=== PATIENT | male | born 1995 | race Caucasian/White ===

== ENCOUNTER 2017-04-07 23:22 | Inpatient (IN) | payer OTHER ==
[~2017-04-07] VITALS: Ht 182.9 cm; Wt 74.7 kg
[~2017-04-07 23:22] MED LIST: Z.0.NO CURRENT MEDS
[2017-04-07 23:29] VITALS: BP 132/77; PULSE 89; RESP 16; TEMP 98.6; O2SAT 98
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
[2017-04-08] MEDS ORDERED: TETANUS/DIPHTHERIA TOXOID ADULT 0.5 ML VIAL IM ONE
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
[2017-04-08 00:57] LABS: AUTOMATED NEUTROPHIL # 12.5 TH/MM3 (1.8-7.7); BASOPHIL # 0.1 TH/MM3 (0-0.2); BASOPHIL % 0.9 % (0.0-2.0); EOSINOPHIL # 0.1 TH/MM3 (0-0.4); EOSINOPHIL % 0.4 % (0.0-4.0); HEMOGLOBIN 14.2 GM/DL (13.0-17.0); LYMPH % 9.7 % (9.0-44.0); LYMPHOCYTE # 1.5 TH/MM3 (1.0-4.8); MEAN CELL VOLUME 88.9 FL (80.0-100.0); MEAN CORPUSCULAR HEMOGLOBIN 30.8 PG (27.0-34.0); MEAN CORPUSCULAR HGB CONC 34.7 % (32.0-36.0); MEAN PLATELET VOLUME 9.5 FL (7.0-11.0); MONO % 6.5 % (0.0-8.0); NEUT % 82.5 % (16.0-70.0); PLATELET COUNT 245 TH/MM3 (150-450); RED BLOOD COUNT 4.62 MIL/MM3 (4.50-5.90); RED CELL DISTRIBUTION WIDTH 13.5 % (11.6-17.2); WHITE BLOOD COUNT 15.1 TH/MM3 (4.0-11.0)
[2017-04-08 01:04] LABS: ALBUMIN 4.4 GM/DL (3.4-5.0); ALT (GPT) 17 U/L (12-78); AST (GOT) 18 U/L (15-37); BICARBONATE 21.1 MEQ/L (21.0-32.0); BLOOD UREA NITROGEN 5 MG/DL (7-18); CALCIUM 8.8 MG/DL (8.5-10.1); CHLORIDE 104 MEQ/L (98-107); CREATININE 1.34 MG/DL (0.60-1.30); GLOMERULAR FILTRATION RATE 67 ML/MIN (>89); GLUCOSE,RANDOM 148 MG/DL (74-106); SODIUM (NA) 140 MEQ/L (136-145)
[2017-04-08 01:15] LABS: ALKALINE PHOSPHATASE 52 U/L (45-117); TOTAL BILIRUBIN ADULT 0.8 MG/DL (0.2-1.0); TOTAL PROTEIN 7.5 GM/DL (6.4-8.2)
[2017-04-08 01:25] LABS: ACETAMINOPHEN LESS THAN 2.0 MCG/ML (10.0-30.0)
[2017-04-08 08:12] VITALS: BP 120/74; PULSE 78; RESP 20; TEMP 98.8; O2SAT 100
[2017-04-08 10:00] VITALS: BP 121/83; PULSE 71; RESP 18; O2SAT 100
[2017-04-08 11:14] VITALS: BP 108/69; PULSE 75; RESP 18; O2SAT 97
[2017-04-08] MEDS ORDERED: LORazepam 0.5 MG TAB PO PRN (11:15)
[2017-04-08] MEDS ORDERED: ALUMINUM/MAGNESIUM/SIMETH 30 ML CUP PO PRN (11:15)
[2017-04-08] MEDS: NICOTINE 21 MG/24 HR PATCH T-DERMAL SCH (11:15)
[2017-04-08] MEDS ORDERED: LORazepam 2 MG/ML VIAL IM PRN ×2 (11:15)
[2017-04-08] MEDS ORDERED: LORazepam 1 MG TAB PO PRN (11:15)
[2017-04-08] MEDS ORDERED: ACETAMINOPHEN 325 MG TAB PO PRN (11:15)
[2017-04-08] MEDS ORDERED: risperiDONE 0.5 MG TAB PO SCH (11:15)
[2017-04-08] MEDS ORDERED: MAGNESIUM HYDROXIDE SUSP 30 ML CUP PO PRN (11:15)
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
[2017-04-08 14:05] VITALS: BP 120/81; PULSE 79; RESP 20; TEMP 99.6; O2SAT 99
[2017-04-08] MEDS: REMOVE OLD NICODERM (NICOTINE) PATCH T-DERMAL SCH (21:00)
[2017-04-09 05:46] VITALS: BP 129/65; PULSE 69; RESP 17; TEMP 97.9; O2SAT 97
[2017-04-09 06:50] LABS: BICARBONATE 21.7 MEQ/L (21.0-32.0); CALCIUM 9.6 MG/DL (8.5-10.1); CHLORIDE 106 MEQ/L (98-107); CREATININE 0.82 MG/DL (0.60-1.30); GLOMERULAR FILTRATION RATE 117 ML/MIN (>89); GLUCOSE,RANDOM 101 MG/DL (74-106); SODIUM (NA) 140 MEQ/L (136-145)
[2017-04-09 06:51] LABS: CHOLESTEROL 152 MG/DL (120-200)
[2017-04-09 06:54] LABS: CHOLESTEROL/ HDL RATIO 2.02 RATIO; LDL CHOLESTEROL 67 MG/DL (0-99); TRIGLYCERIDES 49 MG/DL (42-150)
[2017-04-09 07:00] LABS: BLOOD UREA NITROGEN 6 MG/DL (7-18)
[2017-04-09] MEDS: NICOTINE 21 MG/24 HR PATCH T-DERMAL SCH ×2 (08:10→09:40)
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
[2017-04-09] MEDS ORDERED: POTASSIUM CHLORIDE 10 MEQ CONTROLLED RELEASE TAB PO ONE (09:45)
[2017-04-09 15:44] LABS: HEMOGLOBIN A1C 4.9 % (4.3-6.0)
[2017-04-09 16:06] VITALS: BP 122/64; PULSE 57; RESP 18; TEMP 99; O2SAT 100
[2017-04-09] MEDS: REMOVE OLD NICODERM (NICOTINE) PATCH T-DERMAL SCH (21:00)
[2017-04-09] MEDS: risperiDONE 1 MG TAB PO SCH (21:00)
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
[2017-04-10 05:38] VITALS: BP 109/58; PULSE 59; RESP 18; TEMP 96.8; O2SAT 97
[2017-04-10] MEDS: CEPHALEXIN MONOHYDRATE 500 MG CAP PO SCH ×4 (06:00→18:00)
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
[2017-04-10 08:46] LABS: AUTOMATED NEUTROPHIL # 4.9 TH/MM3 (1.8-7.7); BASOPHIL # 0.1 TH/MM3 (0-0.2); EOSINOPHIL # 0.1 TH/MM3 (0-0.4); EOSINOPHIL % 0.8 % (0.0-4.0); MEAN CELL VOLUME 88.4 FL (80.0-100.0); MEAN CORPUSCULAR HEMOGLOBIN 30.8 PG (27.0-34.0); MEAN CORPUSCULAR HGB CONC 34.9 % (32.0-36.0); MONO % 8.5 % (0.0-8.0); MONOCYTE # 0.7 TH/MM3 (0-0.9); NEUT % 63.7 % (16.0-70.0); PLATELET COUNT 275 TH/MM3 (150-450); RED BLOOD COUNT 4.87 MIL/MM3 (4.50-5.90); RED CELL DISTRIBUTION WIDTH 13.5 % (11.6-17.2); WHITE BLOOD COUNT 7.7 TH/MM3 (4.0-11.0)
[2017-04-10] MEDS: risperiDONE 1 MG TAB PO SCH ×2 (09:00→20:55)
[2017-04-10 09:15] LABS: CALCIUM 9.5 MG/DL (8.5-10.1); CREATININE 0.86 MG/DL (0.60-1.30); MAGNESIUM 2.5 MG/DL (1.5-2.5)
--- NOTE | 2017-04-10 12:14 | HHI.PYPN ---
Subjective Chief Complaint: Psychosis Remarks Patient seen and examined with nurse. Chart reviewed. Case discussed with nursing staff who reports patient's mother could not be reached to provide consent for Risperdal and so this remains on hold. Patient did refuse his Keflex. Case discussed in treatment team. On my examination today, patient remains oddly related and internally preoccupied. No SI or HI. No adelso delusional material. No physical complaints. Review of Systems ROS Limitations: Psychotic, Poor Historian Except as stated in HPI: all other systems reviewed are Neg Mental Status Examination Appearance: Disheveled Consciousness: Alert Orientation: x4 Motor Activity: Normal gait, Other (no motoric abnormalities appreciated) Speech: Hesitant Language: Adequate Fund of Knowledge: Adequate Attention and Concentration: Easily Distracted Memory: Unremarkable Mood: Other (calm) Affect: Blunt Thought Process & Associations: Circumstantial Thought Content: Bizarre thinking, Thought blocking Hallucination Type: Other (denies AVH but appears internally stimulated) Delusion Type: None Suicidal Ideation: No Suicidal Plan: No Suicidal Intention: No Homicidal Ideation: No Homicidal Plan: No Homicidal Intention: No Insight: Poor Judgment: Poor Results Labs Item Value Date Time Erythrocyte Sedimentation Rate 1 mm/hr 04/09/17 1557 White Blood Count 7.7 TH/MM3 04/10/17 0830 Ammonia 20 MCMOL/L 04/09/17 1557 Vitamin B12 Level 585 PG/ML 04/09/17 1557 Thyroid Stimulating Hormone 3rd Gen 1.020 uIU/ML 04/08/17 0017 HIV (1&2) Antibody NEGATIVE 04/09/17 1557 Rapid Plasma Reagin NON-REACTIVE 04/09/17 1557 Labs reviewed. No organic cause identified so far for patient's symptoms. MRI brain and EEG pending. Vitals/IOs Vital Signs Date Time Temp Pulse Resp B/P (MAP) Pulse Ox O2 Delivery O2 Flow Rate FiO2 04/10/17 05:38 96.8 59 18 109/58 (75) 97 04/08/17 11:14 Room Air Assessment & Plan Problem List: (1) Brief psychotic disorder ICD Codes: F23 - Brief psychotic disorder Assessment & Plan Initiate Risperdal for psychotic symptoms once consent from healthcare surrogate has been obtained. Continue to monitor on the inpatient unit. Neurology and hospitalist input noted and appreciated. Follow-up outstanding studies. Continue to monitor on the inpatient unit. Continue other medications and care as ordered. Justification for Cont. Inpt. Impairment in reality construction. Risk for decompensation in less restrictive environment. Discharge Planning Pending psychiatric stabilization. Request HC Surrog/Guard Advoc?: Yes Tanner Smith MD Apr 10, 2017 12:14
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
--- NOTE | 2017-04-10 14:42 | EKG ---
Date Performed: 04/09/2017 Time Performed: 14:21:54 PTAGE: 21 years EKG: Sinus rhythm WITH SHORT MD INTERVAL PROBABLE LATERAL MYOCARDIAL INFARCTION , PROBABLY OLD PROBABLE INFERIOR MYOCA RDIAL INFARCTION , PROBABLY OLD ABNORMAL ECG NO PREVIOUS TRACING DOCTOR: Toni Cruz Interpretating Date/Time 04/10/2017 14:33:08
[2017-04-10 18:10] VITALS: BP 110/70; PULSE 65; RESP 18; TEMP 99.1; O2SAT 100
[2017-04-10] MEDS: LACTOBACILLUS ACIDOPHILUS TAB PO SCH (20:55)
[2017-04-10] MEDS: REMOVE OLD NICODERM (NICOTINE) PATCH T-DERMAL SCH (20:56)
[2017-04-10] MEDS ORDERED: OLANZapine IM 10 MG VIAL IM ONE (22:42)
[2017-04-10] MEDS ORDERED: OLANZapine IM 10 MG VIAL IM SCH (23:00)
[2017-04-11 05:37] VITALS: BP 102/50; PULSE 72; RESP 18; TEMP 96.1; O2SAT 97
[2017-04-11] MEDS: CEPHALEXIN MONOHYDRATE 500 MG CAP PO SCH ×4 (05:50→17:39)
[2017-04-11] MEDS: NICOTINE 21 MG/24 HR PATCH T-DERMAL SCH (08:43)
--- NOTE | 2017-04-11 08:50 | HHI.PYPN ---
Subjective Chief Complaint: Psychosis Remarks Patient seen and examined with nurse. Chart reviewed. Patient is refusing oral Risperdal. Case discussed with nursing staff. I was called yesterday evening as the physician on-call because the patient was growing restless, anxious and difficult to redirect. I ordered the patient medicated with Zyprexa IM ETO, and he slept well after that. On my examination today, the patient remains vague, somewhat disorganized. He remains internally preoccupied. He denies SI or HI. He denies any side effects from the Zyprexa he received yesterday evening. Complains of feeling a little bit cold (his room is cold, and I have asked nurse to try to move patient to a warmer room) but otherwise no physical complaints. TSH wnl. Spoke with patient's mother/HCS over the phone. We review circumstances of patient's presentation here. Mother notes patient was sleeping quite poorly in the several days prior to admission and thinks that he would do much better if he got a good night sleep. We review the laboratory findings and clinical data obtained up to this point. We discuss general medical and neurological consultations. We discuss patient's refusal of oral Risperdal and discuss pharmacotherapeutic options going forward. Given good tolerability of Zyprexa, we settle on a trial of this agent PO with IM backup. She thanks me for the call. Review of Systems ROS Limitations: Psychotic, Poor Historian Except as stated in HPI: all other systems reviewed are Neg Mental Status Examination Appearance: Disheveled Consciousness: Alert Orientation: x4 Motor Activity: Normal gait, Other (no abnormal motor movements noted. No hand tremor, no cogwheeling, no masked facies, no dystonias, no dyskinesias.) Speech: Hesitant Language: Adequate Fund of Knowledge: Adequate Attention and Concentration: Easily Distracted Memory: Unremarkable Mood: Other (calm) Affect: Blunt Thought Process & Associations: Circumstantial (somewhat disorganized at times) Thought Content: Bizarre thinking, Thought blocking Hallucination Type: Other (remains internally stimulated) Delusion Type: None Suicidal Ideation: No Suicidal Plan: No Suicidal Intention: No Homicidal Ideation: No Homicidal Plan: No Homicidal Intention: No Insight: Poor Judgment: Poor Results Labs Labs reviewed. Laboratory workup for medical causes of psychosis unrevealing. Only outstanding laboratory is JOHN. MRI of the brain performed and impression is pending. Awaiting EEG results. Vitals/IOs Vital Signs Date Time Temp Pulse Resp B/P (MAP) Pulse Ox O2 Delivery O2 Flow Rate FiO2 04/11/17 05:37 96.1 72 18 102/50 (67) 97 04/08/17 11:14 Room Air Assessment & Plan Problem List: (1) Brief psychotic disorder ICD Codes: F23 - Brief psychotic disorder Assessment & Plan Discontinue Risperdal and initiate Zyprexa Zydis 10mg qHS with IM backup to target psychosis. R/B/A discussed with HCS. Plan to titrate to effect. Follow -up outstanding labs/studies. Continue to monitor on an inpatient unit. Continue other medications and care as ordered. Justification for Cont. Inpt. Med changes. Impairment in reality construction. High risk for decompensation in less restrictive environment. Discharge Planning pending psychiatric stabilization. [place] [facility] tomorrow. Request HC Surrog/Guard Advoc?: Yes Tanner Smith MD Apr 11, 2017 08:50
[2017-04-11] MEDS: risperiDONE 1 MG TAB PO SCH (09:00)
[2017-04-11] MEDS: LACTOBACILLUS ACIDOPHILUS TAB PO SCH ×2 (09:00→20:18)
--- NOTE | 2017-04-11 09:54 | PD.TTN ---
Patient Problems 1. Discharge planning 2. Medication compliance 3. Knowledge deficit 4. Lack of coping skills Progress Toward Goals Provider Present: Dr. Aaron Smith Provider Input: 04/10/17 - Dr. Smith reported that the patient remains psychotic and he is awaiting his mother's consent for Risperdal. Psychiatric Counselors Present: Yesika Oneill [facility], CHRISTIANO Fermin Psych Therapist Input: 04/10/17 - Patient remains psychotic with disorganized thought process. He has no insight into his mental illness. Group Spec/RT/OT/YATES Present: LÁZARO Capellan, MILAN Platt Group Spec/RT/OT/YATES Input: 04/10/17 - Patient is not participating in groups. Discharge Plan SMA Patient will be discharged home to his mother's house when deemed appropriate by Dr. Smith. Documentation Scribe: CHRISTIANO Fermin Date Resolved: Apr 10, 2017 Samina Marquez Apr 11, 2017 09:54
--- NOTE | 2017-04-11 13:36 | RADRPT ---
EXAM DATE/TIME: 04/11/2017 13:03 [place] COMPARISON: No previous studies available for comparison. INDICATIONS : Psychosis. MEDICAL HISTORY : None. SURGICAL HISTORY : Corneal transplant. ENCOUNTER: Initial ACUITY: 1 week PAIN SCORE: 0/10 LOCATION: head TECHNIQUE: Multiplanar, multisequence MRI of the brain was performed without contrast. FINDINGS: CEREBRUM: The ventricles are normal for age. No evidence of midline shift, mass lesion, hemorrhage or acute in farction. No extraaxial fluid collections are seen. The pituitary gland and suprasellar cistern are normal in configuration. WHITE MATTER: No significant signal abnormalities are seen in the white matter. POSTERIOR FOSSA: The cerebellum and brainstem are intact. The 4th ventricle is midline. The cerebellopontine angle is unremarkable. The cerebellar tonsils are normal in position. DIFFUSION IMAGING: No focal areas of restricted diffusion are seen. No evidence of acute infarction. EXTRACRANIAL: The visualized portions of the orbits and paranasal sinuses are unremarkable. CONCLUSION: Normal examination. Antoine López MD on April 11, 2017 at 13:31 Board Certified Radiologist. This report was verified electronically.
[2017-04-11 14:06] LABS: ANA SCREEN NEG (NEG)
--- NOTE | 2017-04-11 15:58 | MG ---
cc: TERRANCE THOMAS M.D. Sex: M DATE OF : 1995, 21 years old. EE-[id number] Room 2707 INTRODUCTION: Photic stimulation, that was stopped 44 seconds into hyperventilation portion because the patient did not cooperate. Awake, drowsy and asleep study. [place], on Keflex and nicotine. DESCRIPTION OF RECORD There is overall 8 Hz alpha rhythm. Photic stimulation with a mild driving response seen. Hyperventilation was tried but stopped because the patient did not participate but no attenuation, epileptic activity. EKG looks sinus. IMPRESSION Normal EEG. No epileptiform features in this recording. Clinical correlation. MD ODILON Blood/DELICIA /2:39 PM /2:54 PM
[2017-04-11 16:45] VITALS: BP 112/56; PULSE 65; RESP 18; TEMP 98.6; O2SAT 99
[2017-04-11] MEDS: REMOVE OLD NICODERM (NICOTINE) PATCH T-DERMAL SCH (20:23)
[2017-04-11] MEDS ORDERED: OLANZapine ODT 10 MG TAB PO SCH (21:00)
[2017-04-11] MEDS ORDERED: OLANZapine IM 10 MG VIAL IM PRN (21:00)
[2017-04-12] MEDS: CEPHALEXIN MONOHYDRATE 500 MG CAP PO SCH ×4 (05:30→17:37)
[2017-04-12 06:05] VITALS: BP 121/82; PULSE 62; RESP 16; TEMP 97.3; O2SAT 98
[2017-04-12] MEDS: NICOTINE 21 MG/24 HR PATCH T-DERMAL SCH (09:00)
[2017-04-12] MEDS: LACTOBACILLUS ACIDOPHILUS TAB PO SCH ×2 (10:57→20:09)
--- NOTE | 2017-04-12 11:09 | HHI.PYPN ---
Subjective Chief Complaint: Psychosis Remarks Patient seen and case discussed with nursing staff. Chart reviewed. For me today, patient remains somewhat scattered and disorganized. He stares out the window in the day area intently and appears internally preoccupied. No SI/HI. No evident side effects from medications. Patient's case was presented to the [address] court and placed in continuance for 2 weeks with mother to service healthcare surrogate. Review of Systems Other No physical complaints Mental Status Examination Appearance: Other (grooming is improving) Consciousness: Alert Orientation: x4 Motor Activity: Normal gait, Other (no motor abnormalities noted) Speech: Hesitant Language: Adequate Fund of Knowledge: Adequate Attention and Concentration: Easily Distracted Memory: Unremarkable Mood: Other (calm) Affect: Blunt Thought Process & Associations: Circumstantial (remains somewhat disorganized at times) Thought Content: Bizarre thinking, Thought blocking Hallucination Type: Other (appears internally preoccupied) Delusion Type: None Suicidal Ideation: No (no SI voiced) Homicidal Ideation: No (no HI voiced) Insight: Poor Judgment: Poor Results Labs Labs reviewed. JOHN negative. MRI brain read as normal. EEG negative. Vitals/IOs Vital Signs Date Time Temp Pulse Resp B/P (MAP) Pulse Ox O2 Delivery O2 Flow Rate FiO2 04/12/17 06:05 97.3 62 16 121/82 (95) 98 04/08/17 11:14 Room Air Assessment & Plan Problem List: (1) Brief psychotic disorder ICD Codes: F23 - Brief psychotic disorder Assessment & Plan Titrate oral Zyprexa to 15 mg at bedtime to target psychotic symptoms. Continue to monitor on the inpatient unit, although we will try to transfer the patient to the lower acuity unit today of a bed is available. Continue other medications and care as ordered. Justification for Cont. Inpt. Med changes. Risk for decompensation in less restrictive environment. Discharge Planning Pending psychiatric stabilization Request HC Surrog/Guard Advoc?: Yes Tanner Smith MD Apr 12, 2017 11:09
[2017-04-12 16:45] VITALS: BP 122/63; PULSE 63; RESP 18; TEMP 98.2; O2SAT 98
[2017-04-12] MEDS: OLANZapine ODT 15 MG TAB PO SCH (20:09)
[2017-04-12] MEDS: REMOVE OLD NICODERM (NICOTINE) PATCH T-DERMAL SCH (20:36)
[2017-04-13] MEDS: CEPHALEXIN MONOHYDRATE 500 MG CAP PO SCH ×4 (01:14→19:06)
[2017-04-13 05:35] VITALS: BP 107/67; PULSE 66; RESP 16; TEMP 98; O2SAT 98
[2017-04-13] MEDS: LACTOBACILLUS ACIDOPHILUS TAB PO SCH ×2 (08:53→20:21)
[2017-04-13] MEDS: NICOTINE 21 MG/24 HR PATCH T-DERMAL SCH (08:57)
[2017-04-13] MEDS: REMOVE OLD NICODERM (NICOTINE) PATCH T-DERMAL SCH (09:00)
--- NOTE | 2017-04-13 11:38 | HHI.PYPN ---
Subjective Chief Complaint: Psychosis Remarks Patient seen and examined with nurse. Chart reviewed. Case discussed with nursing staff reports patient remains delayed but seems less fearful. Case discussed in treatment team. On my examination today, the patient's affect is a little bit more reactive. He is little bit more focused and less vague in conversation. He denies any SI or HI. Denies AVH but remains somewhat internally stimulated. Denies side effects from medications and says that he likes the Zyprexa because it helped him sleep. No physical complaints. [facility] requesting a call back for patient's mother/HCS to discuss patient's progress on the unit. Review of Systems ROS Limitations: Psychotic Except as stated in HPI: all other systems reviewed are Neg Mental Status Examination Appearance: Appropriate, Other Consciousness: Alert Orientation: x4 Motor Activity: Other (no hand tremor, no cogwheeling, no dystonias, no dyskinesias. No other motor abnormalities noted.) Speech: Hesitant Language: Adequate Fund of Knowledge: Adequate Attention and Concentration: Easily Distracted Memory: Unremarkable Mood: Other (calm) Affect: Blunt (somewhat more reactive today) Thought Process & Associations: Circumstantial (more organized today) Thought Content: Appropriate Hallucination Type: None (denies AVH) Delusion Type: None Suicidal Ideation: No Suicidal Plan: No Suicidal Intention: No Homicidal Ideation: No Homicidal Plan: No Homicidal Intention: No Insight: Poor Judgment: Poor Results Labs Labs reviewed. Vitals/IOs Vital Signs Date Time Temp Pulse Resp B/P (MAP) Pulse Ox O2 Delivery O2 Flow Rate FiO2 04/13/17 05:35 98.0 66 16 107/67 (80) 98 Assessment & Plan Problem List: (1) Brief psychotic disorder ICD Codes: F23 - Brief psychotic disorder Assessment & Plan Continue Zyprexa as ordered for now, although this agent could be titrated over the weekend should residual psychotic symptoms fail to respond to current dose. Continue to monitor on the inpatient unit. I have discussed with the charge nurse, and we will try to get the patient over to the lower acuity unit today. Continue other medications and care as ordered. Justification for Cont. Inpt. Risk for decompensation in less restrictive environment. Discharge Planning Pending psychiatric stabilization. Possible discharge middle of next week. Request HC Surrog/Guard Advoc?: Yes Tanner Smith MD Apr 13, 2017 11:38
[2017-04-13 18:39] VITALS: BP 103/64; PULSE 74; RESP 18; TEMP 98.6; O2SAT 100
[2017-04-13] MEDS: OLANZapine ODT 15 MG TAB PO SCH (20:21)
[2017-04-14] MEDS: CEPHALEXIN MONOHYDRATE 500 MG CAP PO SCH ×4 (00:14→18:00)
[2017-04-14 06:00] VITALS: BP 159/75; PULSE 57; RESP 18; TEMP 98; O2SAT 97
[2017-04-14] MEDS: LACTOBACILLUS ACIDOPHILUS TAB PO SCH ×2 (09:00→20:59)
--- NOTE | 2017-04-14 12:00 | HHI.PYPN ---
Subjective Chief Complaint: Psychosis Remarks Pt seen and discussed with staff. He is compliant with medications. He continues to engage in bizarre behavior and remains internally stimulated, but is more engaged and organized. No medication side effects. No SI/HI. No behavioral problems on unit. He states that medications are helping to "keep me cool calm and collected". Mental Status Examination Appearance: Appropriate, Other Consciousness: Alert Orientation: x4 Motor Activity: Other (no hand tremor, no cogwheeling, no dystonias, no dyskinesias. No other motor abnormalities noted.) Speech: Hesitant Language: Adequate Fund of Knowledge: Adequate Attention and Concentration: Easily Distracted Memory: Unremarkable Mood: Other (calm) Affect: Labile, Blunt (somewhat more reactive today) Thought Process & Associations: Circumstantial (more organized today) Thought Content: Appropriate Hallucination Type: Other (denies but appears internally stimulated) Delusion Type: None Suicidal Ideation: No Suicidal Plan: No Suicidal Intention: No Homicidal Ideation: No Homicidal Plan: No Homicidal Intention: No Insight: Poor Judgment: Poor Results Vitals/IOs Vital Signs Date Time Temp Pulse Resp B/P (MAP) Pulse Ox O2 Delivery O2 Flow Rate FiO2 04/14/17 06:00 98.0 57 18 159/75 (103) 97 Assessment & Plan Problem List: (1) Brief psychotic disorder ICD Codes: F23 - Brief psychotic disorder Assessment & Plan Pt improving. Continue current tx plan. Estimated LOS: days Justification for Cont. Inpt. risk of decompensation Request HC Surrog/Guard Advoc?: Yes Cecilia Busch MD Apr 14, 2017 12:00
[2017-04-14 17:20] VITALS: BP 119/67; PULSE 74; RESP 18; TEMP 98.7; O2SAT 100
[2017-04-14] MEDS: OLANZapine ODT 15 MG TAB PO SCH (20:59)
[2017-04-15] MEDS: CEPHALEXIN MONOHYDRATE 500 MG CAP PO SCH ×5 (05:06→23:08)
[2017-04-15 05:42] VITALS: BP 109/75; PULSE 72; RESP 18; TEMP 97.4; O2SAT 98
[2017-04-15] MEDS: LACTOBACILLUS ACIDOPHILUS TAB PO SCH ×2 (09:26→20:12)
--- NOTE | 2017-04-15 11:18 | HHI.PYPN ---
Subjective Chief Complaint: Psychosis Remarks Pt seen and discussed with staff. He has been paranoid and was noted to hypervigilant of surroundings. He has attended therapeutic groups today and has been compliant with medications. No SI/HI. No medication side effects. Mental Status Examination Appearance: Appropriate, Other Consciousness: Alert Orientation: x4 Motor Activity: Other (no hand tremor, no cogwheeling, no dystonias, no dyskinesias. No other motor abnormalities noted.) Speech: Hesitant Language: Adequate Fund of Knowledge: Adequate Attention and Concentration: Easily Distracted Memory: Unremarkable Mood: Other (calm) Affect: Labile, Blunt (somewhat more reactive today) Thought Process & Associations: Circumstantial (more organized today) Thought Content: Appropriate Hallucination Type: Other (denies but appears internally stimulated) Delusion Type: Paranoid (mild) Suicidal Ideation: No Suicidal Plan: No Suicidal Intention: No Homicidal Ideation: No Homicidal Plan: No Homicidal Intention: No Insight: Poor Judgment: Poor Results Vitals/IOs Vital Signs Date Time Temp Pulse Resp B/P (MAP) Pulse Ox O2 Delivery O2 Flow Rate FiO2 04/15/17 05:42 97.4 72 18 109/75 (86) 98 Assessment & Plan Problem List: (1) Brief psychotic disorder ICD Codes: F23 - Brief psychotic disorder Assessment & Plan Pt improving. Continue current tx plan. Estimated LOS: days Justification for Cont. Inpt. risk of decompensation Request HC Surrog/Guard Advoc?: Yes Cecilia Busch MD Apr 15, 2017 11:18
[2017-04-15 16:00] VITALS: BP 108/60; PULSE 57; RESP 17; TEMP 99; O2SAT 99
[2017-04-15] MEDS: OLANZapine ODT 15 MG TAB PO SCH (20:12)
[2017-04-16] MEDS: CEPHALEXIN MONOHYDRATE 500 MG CAP PO SCH ×4 (05:33→20:38)
[2017-04-16 05:41] VITALS: BP 103/51; PULSE 67; RESP 17; TEMP 97.4; O2SAT 98
[2017-04-16] MEDS: LACTOBACILLUS ACIDOPHILUS TAB PO SCH ×2 (09:05→20:38)
--- NOTE | 2017-04-16 09:07 | HHI.PYPN ---
Subjective Chief Complaint: Psychosis Remarks Patient seen and examined with nurse. Chart reviewed. Case discussed with nursing staff. Case discussed with counselor. On my examination today, the patient is more interactive. His affect is brighter. His thought process clearer. He denies any SI or HI. Denies any AVH. He says that the Seroquel is helping him sleep, and he denies side effects on this medication. No physical complaints. Spoke with patient's mother/healthcare surrogate. She believes that the patient is much improved and would feel comfortable having him home soon. We discussed possible Sunday discharge, and she is agreeable to this plan. Review of Systems Except as stated in HPI: all other systems reviewed are Neg Mental Status Examination Appearance: Appropriate, Other Consciousness: Alert Orientation: x4 Motor Activity: Other (no motor abnormalities appreciated) Speech: Unremarkable Language: Adequate Fund of Knowledge: Adequate Attention and Concentration: Adequate Memory: Unremarkable Mood: Appropriate Affect: Appropriate Thought Process & Associations: Intact Thought Content: Appropriate Hallucination Type: None Delusion Type: None Suicidal Ideation: No Suicidal Plan: No Suicidal Intention: No Homicidal Ideation: No Homicidal Plan: No Homicidal Intention: No Insight: Poor (improving) Judgment: Poor (improving) Results Labs Labs reviewed. Vitals/IOs Vital Signs Date Time Temp Pulse Resp B/P (MAP) Pulse Ox O2 Delivery O2 Flow Rate FiO2 04/16/17 05:41 97.4 67 17 103/51 (68) 98 Assessment & Plan Problem List: (1) Brief psychotic disorder ICD Codes: F23 - Brief psychotic disorder Assessment & Plan Continue Zyprexa as ordered. Transfer to lower acuity unit today; discussed with charge nurse. Continue other medications and care as ordered. Justification for Cont. Inpt. Risk for decompensation and less restrictive environment; want to make sure patient can tolerate lower acuity milieu. Discharge Planning Anticipate discharge tomorrow, Sunday. Request HC Surrog/Guard Advoc?: Yes Tanner Smith MD Apr 16, 2017 09:07
[2017-04-16] MEDS: OLANZapine ODT 15 MG TAB PO SCH (20:38)
[2017-04-17 05:49] VITALS: BP 98/59; PULSE 70; RESP 18; TEMP 97.9; O2SAT 99
[2017-04-17] MEDS: CEPHALEXIN MONOHYDRATE 500 MG CAP PO SCH ×2 (06:11→13:23)
[2017-04-17] MEDS: LACTOBACILLUS ACIDOPHILUS TAB PO SCH (09:21)
[2017-04-17] MEDS ORDERED: ZYPR15TA PO (12:13)
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
== END 2017-04-17 16:55 | disposition home or self-care (01) | DRG 885 ==
LOC: NEPD 23:22 → NEDA 04-08 11:15 → H270 04-08 14:00 → H260 04-16 13:20
PROVIDERS: ADMIT Psychiatry & Neurology Psychiatry; ATTEND Psychiatry & Neurology Psychiatry
DX: F23 Brief psychotic disorder (principal); S21.119A Laceration without foreign body of unspecified front wall of thorax without penetration into thoracic cavity, initial encounter; S41.012A Laceration without foreign body of left shoulder, initial encounter; E87.6 Hypokalemia; D72.829 Elevated white blood cell count, unspecified; F12.90 Cannabis use, unspecified, uncomplicated; S61.411A Laceration without foreign body of right hand, initial encounter; S61.412A Laceration without foreign body of left hand, initial encounter; K30 Functional dyspepsia; W25.XXXA Contact with sharp glass, initial encounter; Z94.7 Corneal transplant status
CPT/HCPCS: 70551; 71045; 80048; 80053; 80061; 80307; 82140; 82607; 83036; 83735; 84443; 85025; 85652; 86038; 86592; 86703; 90471; 90714; 93005; 95819

== ENCOUNTER 2017-07-06 17:17 | Inpatient (IN) | payer OTHER ==
[~2017-07-06] VITALS: Ht 180.3 cm; Wt 87.1 kg
[~2017-07-06 17:17] MED LIST changes: -Z.0.NO CURRENT MEDS; +ZYPR15TA PO
[2017-07-06 17:27] VITALS: BP 138/89; PULSE 78; RESP 17; TEMP 98.8; O2SAT 98
[2017-07-06] MEDS ORDERED: LORazepam 2 MG/ML VIAL IV PUSH ONE (18:00)
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
[2017-07-06 18:45] LABS: AUTOMATED NEUTROPHIL # 5.8 TH/MM3 (1.8-7.7); BASOPHIL # 0.1 TH/MM3 (0-0.2); BASOPHIL % 0.8 % (0.0-2.0); EOSINOPHIL % 0.3 % (0.0-4.0); HEMATOCRIT 43.4 % (39.0-51.0); HEMOGLOBIN 15.1 GM/DL (13.0-17.0); LYMPH % 27.7 % (9.0-44.0); LYMPHOCYTE # 2.6 TH/MM3 (1.0-4.8); MEAN CELL VOLUME 87.9 FL (80.0-100.0); MEAN CORPUSCULAR HEMOGLOBIN 30.6 PG (27.0-34.0); MEAN CORPUSCULAR HGB CONC 34.9 % (32.0-36.0); MEAN PLATELET VOLUME 7.4 FL (7.0-11.0); MONO % 10.3 % (0.0-8.0); NEUT % 60.9 % (16.0-70.0); PLATELET COUNT 302 TH/MM3 (150-450); RED BLOOD COUNT 4.94 MIL/MM3 (4.50-5.90); RED CELL DISTRIBUTION WIDTH 13.2 % (11.6-17.2); WHITE BLOOD COUNT 9.5 TH/MM3 (4.0-11.0)
[2017-07-06 19:26] LABS: ALBUMIN 4.2 GM/DL (3.4-5.0); AST (GOT) 27 U/L (15-37); BICARBONATE 25.3 MEQ/L (21.0-32.0); BLOOD UREA NITROGEN 13 MG/DL (7-18); CALCIUM 9.5 MG/DL (8.5-10.1); CHLORIDE 105 MEQ/L (98-107); CREATININE 1.11 MG/DL (0.60-1.30); GLOMERULAR FILTRATION RATE 83 ML/MIN (>89); GLUCOSE,RANDOM 101 MG/DL (74-106); SODIUM (NA) 140 MEQ/L (136-145)
[2017-07-06 19:28] LABS: ALKALINE PHOSPHATASE 54 U/L (45-117); ALT (GPT) 45 U/L (12-78); TOTAL BILIRUBIN ADULT 1.6 MG/DL (0.2-1.0)
--- NOTE | 2017-07-06 19:39 | PD ---
Physical Exam Date Seen by Provider: July 06, 2017 Time Seen by Provider: 19:37 Narrative pt has anxiety and worsening of psych symptoms since the of his grandmother in May , see by prior MD for med clearance to psych voluntary Ativan was given awaiting lab results for medical clearance to psych. Pt is sleeping al;l night and then in the morning he awakes still feeling anxious asking to go to the [facility] ,I feel separation anxiety. pt cooperative and wants to stay for [facility] eval Data Data Last Documented VS Vital Signs Date Time Temp Pulse Resp B/P (MAP) Pulse Ox O2 Delivery O2 Flow Rate FiO2 07/07/17 03:01 82 16 138/85 (102) 100 Room Air 07/06/17 17:27 98.8 Orders Orders Complete Blood Count With Diff (07/06/17 17:54) Comprehensive Metabolic Panel (07/06/17 17:54) Thyroid Stimulating Hormone (07/06/17 17:54) Electrocardiogram (07/06/17 17:54) Psych Screen (07/06/17 17:54) Lorazepam Inj (Ativan Inj) (07/06/17 18:00) Drug Screen, Random Urine (07/06/17 17:54) Alcohol (Ethanol) (07/06/17 17:54) Diphenhydramine Inj (Benadryl Inj) (07/07/17 05:30) Lorazepam Inj (Ativan Inj) (07/07/17 05:30) Labs Laboratory Tests Test 07/06/17 18:00 07/07/17 05:25 White Blood Count 9.5 TH/MM3 Red Blood Count 4.94 MIL/MM3 Hemoglobin 15.1 GM/DL Hematocrit 43.4 % Mean Corpuscular Volume 87.9 FL Mean Corpuscular Hemoglobin 30.6 PG Mean Corpuscular Hemoglobin Concent 34.9 % Red Cell Distribution Width 13.2 % Platelet Count 302 TH/MM3 Mean Platelet Volume 7.4 FL Neutrophils (%) (Auto) 60.9 % Lymphocytes (%) (Auto) 27.7 % Monocytes (%) (Auto) 10.3 % Eosinophils (%) (Auto) 0.3 % Basophils (%) (Auto) 0.8 % Neutrophils # (Auto) 5.8 TH/MM3 Lymphocytes # (Auto) 2.6 TH/MM3 Monocytes # (Auto) 1.0 TH/MM3 Eosinophils # (Auto) 0.0 TH/MM3 Basophils # (Auto) 0.1 TH/MM3 CBC Comment DIFF FINAL Differential Comment Blood Urea Nitrogen 13 MG/DL Creatinine 1.11 MG/DL Random Glucose 101 MG/DL Total Protein 8.0 GM/DL Albumin 4.2 GM/DL Calcium Level 9.5 MG/DL Alkaline Phosphatase 54 U/L Aspartate Amino Transf (AST/SGOT) 27 U/L Alanine Aminotransferase (ALT/SGPT) 45 U/L Total Bilirubin 1.6 MG/DL Sodium Level 140 MEQ/L Potassium Level 4.2 MEQ/L Chloride Level 105 MEQ/L Carbon Dioxide Level 25.3 MEQ/L Anion Gap 10 MEQ/L Estimat Glomerular Filtration Rate 83 ML/MIN Thyroid Stimulating Hormone 3rd Gen 0.784 uIU/ML Ethyl Alcohol Level LESS THAN 3 MG/DL MDM Supervised Visit with CANDIS: No Narrative Course medically cleared and given another dose of ativan 0.5 mg and benadryl 12.5 IVP Diagnosis Primary Impression: Unspecified psychosis Additional Impression: Separation anxiety disorder Condition: Stable Reese Lagunas MD July 06, 2017 19:39
[2017-07-07 03:01] VITALS: BP 138/85; PULSE 82; RESP 16; O2SAT 100
[2017-07-07] MEDS ORDERED: diphenhydrAMINE HCL 50 MG/ML VIAL IV PUSH ONE (05:30)
[2017-07-07] MEDS ORDERED: LORazepam 2 MG/ML VIAL IV PUSH ONE (05:30)
[2017-07-07 05:56] VITALS: BP 131/65; PULSE 82; RESP 16; O2SAT 98
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
[2017-07-07] MEDS: OLANZapine 10 MG TAB PO SCH (12:15)
[2017-07-07] MEDS ORDERED: MAGNESIUM HYDROXIDE SUSP 30 ML CUP PO PRN (12:15)
[2017-07-07] MEDS ORDERED: ACETAMINOPHEN 325 MG TAB PO PRN (12:15)
[2017-07-07] MEDS ORDERED: ALUMINUM/MAGNESIUM/SIMETH 30 ML CUP PO PRN (12:15)
[2017-07-07] MEDS ORDERED: hydrOXYzine HCL 50 MG TAB PO PRN (12:15)
[2017-07-07] MEDS: OLANZapine IM 10 MG VIAL IM SCH (13:17)
--- NOTE | 2017-07-07 13:55 | EKG ---
Date Performed: 07/06/2017 Time Performed: 18:09:29 PTAGE: 21 years EKG: Sinus rhythm INCOMPLETE RIGHT BUNDLE BRANCH BLOCK BORDERLINE ECG PREVIOUS TRACING 04/09/2017 14.21 Since the previous tracing, no significant change noted DOCTOR: Jairo Sarah Interpretating Date/Time 07/09/2017 07:15:11
--- NOTE | 2017-07-07 15:19 | HHI.HP ---
Provisional Diagnosis Admission Date July 07, 2017 at 12:37 [place] I. Psychotic episode brief Certification of Person's Competence To Provide Express and Informed Consent I have personally examined Nii Wolf , a person being served at [facility] on, July 07, 2017 15:09. Express and informed consent means consent voluntarily given in writing, by a competent person, after sufficient explanation and disclosure of the subject matter involved to enable the person to make a knowing and willful decision without any element of force, fraud, deceit, duress, or other form of constraint or coercion. This person is 18 years of age or older, is not now known to be incompetent to consent to treatment with a guardian advocate, and does not have a health care surrogate or proxy currently making medical treatment decisions. I have found this person to be one of the following: [xxx] Competent to provide express and informed consent, as defined above, for voluntary admission to this facility and is competent to provide express and informed consent for treatment. He/she has the consistent capacity to make well reasoned, willful, and knowing decisions concerning his or her medical or mental health treatment. The person fully and consistently understands the purpose of the admission for examination/placement and is fully capable of personally exercising all rights assured [place] Incompetent to provide express and informed consent to voluntary admission, and this is incompetent to provide express and informed consent to treatment. The person must be transferred to involuntary status and a petition for a guardian advocate filed with the Circuit Court. [] Refusing to provide express and informed consent to voluntary admission but is competent to provide express and informed consent for treatment. The person must be discharged or transferred to involuntary status. Form shall be completed within 24 hours of a person's arrival at the receiving facility and filed in the clinical record of each person: 1. Admitted on a voluntary basis 2. Permitted to provide express and informed consent to his/her own treatment 3. Allowed to transfer from involuntary to voluntary status 4. Prior to permitting a person to consent to his or her own treatment after having been previously found incompetent to consent to treatment. History of Present Illness Capacity: Has Capacity Psych Chief Complaint: Increase threatening auditory hallucinations HPI Patient is a 21-year-old male who comes here from his family home with a history of increased auditory hallucinations isolation and increased negative symptoms of psychosis. Of interest patient was hospitalized here 04/08 through 2017 discharged on Zyprexa 15 mg at bedtime with diagnosis of brief psychotic episode. It appears the patient became noncompliant with medication after he ran out of his medicine and did not get a refill. This is led to the increasingly symptomatic psychosis. Patient seen and screened in the ED and toxicology negative blood alcohol level negative. At the present time patient sitting quietly in his room and J pod nurse Yasmine present throughout session patient is markedly psychomotor retarded to to 4+, he has very poor eye contact and has marked thought blocking with delayed responses, responses are brief whispered though goal oriented. He is oriented 4. He does acknowledge auditory hallucinations of a command threatening intimidating nature. Though he vaguely denies suicidality. He denies any alcohol or drug use with this. He does wish to get back on his medications. At this time if the patient does meet criteria for further inpatient hospitalization and observation treatment and assessment. I feel he does have capacity to sign voluntary. Thus we will admit the patient will start him on initially 10 mg of Zyprexa Zydis at bedtime. Patient states she is having a difficult time swallowing his mouth appears dry and appears somewhat dehydrated. It appears as ADLs have markedly diminished at home. Hopefully this to be fairly short stay we can return to his medications and return to his home situation Review of Systems Constitutional: DENIES: Diaphoretic episodes, Fatigue, Fever, Weight gain, Weight loss, Chills, Dizziness, Change in appetite, Night Sweats Eyes: DENIES: Blurred vision, Diplopia, Eye inflammation, Eye pain, Vision loss , Photosensitivity, Double Vision Ears, nose, mouth, throat: DENIES: Tinnitus, Hearing loss, Vertigo, Nasal discharge, Oral lesions, Throat pain, Hoarseness, Ear Pain, Running Nose, Epistaxis, Sinus Pain, Toothache, Odynophagia Respiratory: DENIES: Apneas, Cough, Snoring, Wheezing, Hemoptysis, Sputum production, Shortness of breath Gastrointestinal: DENIES: Abdominal pain, Black stools, Bloody stools, Constipation, Diarrhea, Nausea, Vomiting, Difficulty Swallowing, Anorexia Musculoskeletal: DENIES: Joint pain, Muscle aches, Stiffness, Joint Swelling, Back pain, Neck pain Integumentary: DENIES: Abnormal pigmentation, Nail changes, Pruritus, Rash Hematologic/lymphatic: DENIES: Bruising, Lymphadenopathy Immunologic/allergic: DENIES: Eczema, Urticaria Neurologic: DENIES: Abnormal gait, Headache, Localized weakness, Paresthesias, Seizures, Speech Problems, Tremor, Poor Balance Psychiatric: COMPLAINS OF: Depression, Hallucinations (Marked psychomotor retardation) Past Psych History Psychological trauma history Patient denies Violence risk - others (6 mos) Low Violence risk - self (6 mos) Low to moderate Substance Abuse History Drugs/Alcohol past 12 months Patient denies Past Family Social History Coded Allergies: No Known Allergies (Verified Allergy, Unknown, 07/06/17) Discontinued Scripts Olanzapine (Zyprexa) 15 Mg Tab, 15 MG PO HS for MENTAL HEALTH for 15 Days, TAB 1 Refill Prov:Tanner Smith MD 04/17/17 Current Medications Medications (Trade) Dose Ordered Sig/Isac Route Start Time Stop Time Status Last Admin (Tylenol) 650 mg Q4H PRN PO 07/07/17 12:15 (Milk Of Magnesia Liq) 30 ml DAILY PRN PO 07/07/17 12:15 (Mag-Al Plus Susp Liq) 30 ml Q6H PRN PO 07/07/17 12:15 (Atarax) 50 mg Q6H PRN PO 07/07/17 12:15 (ZyPREXA) 10 mg DAILY PO 07/07/17 12:15 (ZyPREXA INJ) 10 mg DAILY IM 07/07/17 13:15 07/07/17 13:17 Family Psych History Patient denies Social History Patient single and lives with mother and sister Patient's Strengths (min. 2) Patient verbal cooperative his supportive family Physical Exam Patient medically cleared ED at the present time patient sitting quietly in his room he is in no acute distress, he is in no respiratory distress, no complaints of abdominal pain. Patient moving all 4 extremities although is marked psychomotor retardation Vital Signs Vital Signs Date Time Temp Pulse Resp B/P (MAP) Pulse Ox O2 Delivery O2 Flow Rate FiO2 07/07/17 09:21 100 07/07/17 05:56 82 16 Room Air 07/06/17 17:27 98.8 Lab Results Test 07/06/17 18:00 07/07/17 05:25 White Blood Count 9.5 TH/MM3 Red Blood Count 4.94 MIL/MM3 Hemoglobin 15.1 GM/DL Hematocrit 43.4 % Mean Corpuscular Volume 87.9 FL Mean Corpuscular Hemoglobin 30.6 PG Mean Corpuscular Hemoglobin Concent 34.9 % Red Cell Distribution Width 13.2 % Platelet Count 302 TH/MM3 Mean Platelet Volume 7.4 FL Neutrophils (%) (Auto) 60.9 % Lymphocytes (%) (Auto) 27.7 % Monocytes (%) (Auto) 10.3 % Eosinophils (%) (Auto) 0.3 % Basophils (%) (Auto) 0.8 % Neutrophils # (Auto) 5.8 TH/MM3 Lymphocytes # (Auto) 2.6 TH/MM3 Monocytes # (Auto) 1.0 TH/MM3 Eosinophils # (Auto) 0.0 TH/MM3 Basophils # (Auto) 0.1 TH/MM3 CBC Comment DIFF FINAL Differential Comment Blood Urea Nitrogen 13 MG/DL Creatinine 1.11 MG/DL Random Glucose 101 MG/DL Total Protein 8.0 GM/DL Albumin 4.2 GM/DL Calcium Level 9.5 MG/DL Alkaline Phosphatase 54 U/L Aspartate Amino Transf (AST/SGOT) 27 U/L Alanine Aminotransferase (ALT/SGPT) 45 U/L Total Bilirubin 1.6 MG/DL Sodium Level 140 MEQ/L Potassium Level 4.2 MEQ/L Chloride Level 105 MEQ/L Carbon Dioxide Level 25.3 MEQ/L Anion Gap 10 MEQ/L Estimat Glomerular Filtration Rate 83 ML/MIN Thyroid Stimulating Hormone 3rd Gen 0.784 uIU/ML Ethyl Alcohol Level LESS THAN 3 MG/DL Urine Opiates Screen NEG Urine Barbiturates Screen NEG Urine Amphetamines Screen NEG Urine Benzodiazepines Screen NEG Urine Cocaine Screen NEG Urine Cannabinoids Screen NEG Mental Status Examination Appearance: Disheveled Consciousness: Alert, Vigilant Orientation: x4 Motor Activity: Normal gait Speech: Hesitant, Slow Language: Adequate Fund of Knowledge: Poor (Marked thought blocking) Attention and Concentration: Easily Distracted Memory: Unremarkable (Fuzzy on some details unsure if this is due to lack of knowledge versus memory) Mood: Sad, Anxious Affect: Other (Decreased range and intensity) Thought Process & Associations: Linear, Tangential (Keeps repeating that he wants to be kept safe.) Thought Content: Thought blocking (Appears to be internally stimulated) Hallucination Type: None (He denies that there seems to be some thought blocking and internal stimulation present) Delusion Type: None Suicidal Ideation: No Suicidal Plan: No Suicidal Intention: No Homicidal Ideation: No Homicidal Plan: No Homicidal Intention: No Insight: Poor Judgment: Poor Assessment & Plan Problem List: (1) Brief psychotic disorder ICD Codes: F23 - Brief psychotic disorder Assessment & Plan Estimated LOS: days at this time patient meets criteria for further inpatient psychiatric hospitalization on a voluntary basis. We will restart his medications at 10 mg Zyprexa at bedtime. With this to be fairly short stay him can return home to his family with follow-up in the community Discharge Planning Returning home Request HC Surrog/Guard Advoc?: No Antoine Olmedo MD July 07, 2017 15:19
[2017-07-07 16:35] VITALS: BP 122/77; PULSE 77; RESP 18; TEMP 98.2; O2SAT 98
[2017-07-08 05:33] VITALS: BP 124/79; PULSE 78; RESP 16; TEMP 98.1; O2SAT 99
[2017-07-08] MEDS: OLANZapine 10 MG TAB PO SCH (08:13)
[2017-07-08] MEDS ORDERED: REMOVE OLD PATCH T-DERMAL SCH (09:00)
[2017-07-08] MEDS: OLANZapine IM 10 MG VIAL IM SCH (09:00)
[2017-07-08 09:52] LABS: BICARBONATE 27.7 MEQ/L (21.0-32.0); BLOOD UREA NITROGEN 13 MG/DL (7-18); CALCIUM 9.3 MG/DL (8.5-10.1); CHLORIDE 106 MEQ/L (98-107); CREATININE 1.07 MG/DL (0.60-1.30); GLOMERULAR FILTRATION RATE 86 ML/MIN (>89); GLUCOSE,RANDOM 89 MG/DL (74-106); SODIUM (NA) 142 MEQ/L (136-145)
[2017-07-08 09:53] LABS: CHOLESTEROL 214 MG/DL (120-200); TRIGLYCERIDES 68 MG/DL (42-150)
[2017-07-08 09:56] LABS: CHOLESTEROL/ HDL RATIO 3.19 RATIO; LDL CHOLESTEROL 133 MG/DL (0-99)
--- NOTE | 2017-07-08 12:30 | HHI.PYPN ---
Subjective Chief Complaint: Increase threatening auditory hallucinations Remarks Patient was seen and case discussed with nursing. Patient is more interactive for mean and he was on admission. He does have eye contact and is able to hold a conversation. Affect remains very flat and speech is slow and soft. Patient' s thought process is circumstantial. He has poor insight about his mental health feels that his thoughts are "scrambled." However he denies auditory hallucinations today but is likely responding to internal stimuli. Denies suicidal or homicidal ideation intent or plan. Compliant with medications Mental Status Examination Appearance: Disheveled Consciousness: Alert, Vigilant Orientation: x4 Motor Activity: Normal gait Speech: Hesitant, Slow Language: Adequate Fund of Knowledge: Poor (Marked thought blocking) Attention and Concentration: Easily Distracted Memory: Unremarkable (Fuzzy on some details unsure if this is due to lack of knowledge versus memory) Mood: Sad, Anxious Affect: Flat Thought Process & Associations: Circumstantial Thought Content: Thought blocking (Appears to be internally stimulated) Hallucination Type: None (He denies that there seems to be some thought blocking and internal stimulation present) Delusion Type: None Suicidal Ideation: No Suicidal Plan: No Suicidal Intention: No Homicidal Ideation: No Homicidal Plan: No Homicidal Intention: No Insight: Poor Judgment: Poor Results Labs Test 07/08/17 08:25 Blood Urea Nitrogen 13 MG/DL Creatinine 1.07 MG/DL Random Glucose 89 MG/DL Calcium Level 9.3 MG/DL Sodium Level 142 MEQ/L Potassium Level 3.7 MEQ/L Chloride Level 106 MEQ/L Carbon Dioxide Level 27.7 MEQ/L Anion Gap 8 MEQ/L Estimat Glomerular Filtration Rate 86 ML/MIN Triglycerides Level 68 MG/DL Cholesterol Level 214 MG/DL LDL Cholesterol 133 MG/DL HDL Cholesterol 67.0 MG/DL Cholesterol/HDL Ratio 3.19 RATIO Vitals/IOs Vital Signs Date Time Temp Pulse Resp B/P (MAP) Pulse Ox O2 Delivery O2 Flow Rate FiO2 07/08/17 05:33 98.1 78 16 124/79 (94) 99 07/07/17 05:56 Room Air Assessment & Plan Problem List: (1) Brief psychotic disorder ICD Codes: F23 - Brief psychotic disorder Assessment & Plan Continue current treatment plan Justification for Cont. Inpt. Patient would decompensate in a less restrictive setting Request HC Surrog/Guard Advoc?: No Manjit Cameron DO July 08, 2017 12:30
--- NOTE | 2017-07-08 12:34 | EKG ---
Date Performed: 07/07/2017 Time Performed: 09:48:14 PTAGE: 21 years EKG: Sinus rhythm INCOMPLETE RIGHT BUNDLE BRANCH BLOCK BORDERLINE ECG PREVIOUS TRACING : 07/06/2017 18.09 Since the previous tracing, no significant change noted DOCTOR: Jairo Sarah Interpretating Date/Time 07/08/2017 12:33:38
[2017-07-08 13:44] LABS: HEMOGLOBIN A1C 4.6 % (4.3-6.0)
[2017-07-08 17:45] VITALS: BP 114/58; PULSE 60; RESP 16; TEMP 98.2; O2SAT 97
[2017-07-09 06:24] VITALS: BP 126/69; PULSE 83; RESP 16; TEMP 97.7; O2SAT 97
[2017-07-09] MEDS: OLANZapine 10 MG TAB PO SCH (08:21)
[2017-07-09] MEDS: OLANZapine IM 10 MG VIAL IM SCH (08:28)
--- NOTE | 2017-07-09 10:58 | HHI.PYPN ---
Subjective Chief Complaint: Increase threatening auditory hallucinations Remarks Patient is seen in day room with nurse, chart reviewed, patient compliant medication, patient discussed with nurse. Patient calmer with decrease in paranoia vigilance and suspiciousness. He denies voices or visions, denies suicidality and homicidality. Says he slept better last night and feels somewhat calmer. He is showing some mild insight into his disease. However he does show some understanding into his need for medication, medication management , and appropriate psychiatric follow-up. For now continue treatment Review of Systems Except as stated in HPI: all other systems reviewed are Neg Mental Status Examination Appearance: Appropriate Consciousness: Alert Orientation: x4 Motor Activity: Normal gait Speech: Hesitant, Slow Language: Adequate Fund of Knowledge: Poor (Decrease in the thought blocking) Attention and Concentration: Easily Distracted (Improved) Memory: Unremarkable (Fuzzy on some details unsure if this is due to lack of knowledge versus memory) Mood: Sad, Anxious (Calm her) Affect: Other (Decreased range and intensity) Thought Process & Associations: Circumstantial (Improve) Thought Content: Thought blocking (Improved) Hallucination Type: None (He denies that there seems to be some thought blocking and internal stimulation present) Delusion Type: None Suicidal Ideation: No Suicidal Plan: No Suicidal Intention: No Homicidal Ideation: No Homicidal Plan: No Homicidal Intention: No Insight: Poor Judgment: Poor Results Vitals/IOs Vital Signs Date Time Temp Pulse Resp B/P (MAP) Pulse Ox O2 Delivery O2 Flow Rate FiO2 07/09/17 06:24 97.7 83 16 126/69 (88) 97 07/07/17 05:56 Room Air Assessment & Plan Problem List: (1) Brief psychotic disorder ICD Codes: F23 - Brief psychotic disorder Assessment & Plan Estimated LOS: days patient remained psychotic though he is improving. He is compliant with medications. For now continue treatment Justification for Cont. Inpt. At this time patient would decompensate if placed in a lower level of care Discharge Planning Return home with mother and sister Request HC Surrog/Guard Advoc?: Antoine Lane MD July 09, 2017 10:58
[2017-07-10 04:00] VITALS: BP 119/66; PULSE 71; RESP 17; TEMP 98; O2SAT 99
[2017-07-10] MEDS: OLANZapine IM 10 MG VIAL IM SCH (09:00)
[2017-07-10] MEDS: OLANZapine 10 MG TAB PO SCH (09:22)
[2017-07-10] MEDS ORDERED: OLAN10TA PO (13:33)
--- NOTE | 2017-07-10 13:36 | HHI.DS ---
Psychiatry Discharge Summary Inpatient Psychiatric care?: Yes Advance Directive: No Reason Not Provided: Due to Patient Condition Mental Health AdvanceDirective: No Health Care Proxy: No Admission Admission Date July 07, 2017 at 12:37 Admission Diagnosis: (1) Brief psychotic disorder ICD Code: F23 - Brief psychotic disorder Brief History Patient is a 21-year-old [facility] male who comes here from his family home with a history of increased auditory hallucinations isolation and increased negative symptoms of psychosis. Of interest patient was hospitalized here 04/08 through 2017 discharged on Zyprexa 15 mg at bedtime with diagnosis of brief psychotic episode. It appears the patient became noncompliant with medication after he ran out of his medicine and did not get a refill. This is led to the increasingly symptomatic psychosis. Patient seen and screened in the ED and toxicology negative blood alcohol level negative. At the present time patient sitting quietly in his room and J pod nurse Yasmine present throughout session patient is markedly psychomotor retarded to to 4+, he has very poor eye contact and has marked thought blocking with delayed responses, responses are brief whispered though goal oriented. He is oriented 4. He does acknowledge auditory hallucinations of a command threatening intimidating nature. Though he vaguely denies suicidality. He denies any alcohol or drug use with this. He does wish to get back on his medications. At this time if the patient does meet criteria for further inpatient hospitalization and observation treatment and assessment. I feel he does have capacity to sign voluntary. Thus we will admit the patient will start him on initially 10 mg of Zyprexa Zydis at bedtime. Patient states she is having a difficult time swallowing his mouth appears dry and appears somewhat dehydrated. It appears as ADLs have markedly diminished at home. Hopefully this to be fairly short stay we can return to his medications and return to his home situation Tobacco Use In Past 30 Days: No Tobacco Past 30 Days Alcohol Use: Never Hospital Course Patient's hospital course was uneventful, he was calm and cooperative somewhat isolative from day of admission. He was compliant with his medications. He has had no behavioral problems. At the present time he denies suicidality and homicidality voices or visions. He feels safe going home he now realizes the importance of compliance with medication and appointments. Thus I feel patient is reached maximum benefit of this hospitalization will be discharged today to his family with Rx 1 month follow-up [facility] outpatient Results Blood Pressure 119 / 66 Vital Signs Date Time Temp Pulse Resp B/P (MAP) Pulse Ox O2 Delivery O2 Flow Rate FiO2 07/10/17 04:00 98.0 71 17 119/66 (83) 99 07/07/17 05:56 Room Air Laboratory Tests Test 07/08/17 08:25 Estimat Glomerular Filtration Rate 86 ML/MIN (>89) Cholesterol Level 214 MG/DL (120-200) LDL Cholesterol 133 MG/DL (0-99) HDL Cholesterol 67.0 MG/DL (40.0-60.0) Laboratory Results Test 07/08/17 08:25 Cholesterol Level 214 MG/DL (120-200) HDL Cholesterol 67.0 MG/DL (40.0-60.0) Hemoglobin A1c 4.6 % (4.3-6.0) LDL Cholesterol 133 MG/DL (0-99) Triglycerides Level 68 MG/DL (42-150) Summary of Procedures None done Pending results at discharge: No Medications # of Antipsychotic meds at D/C: 1 Approp Antipsych med options 1 - Minimum of three failed multiple trials of monotherapy. 2 - Documented plan to taper to monotherapy due to previous use of multiple meds OR cross-taper in progress at D/C. 3 - Documentation of augmentation of Clozapine. 4 - Justification other than those listed in allowable values 1-3, document here : Discharge Discharge Date: July 10, 2017 Discharge Diagnosis: (1) Brief psychotic disorder Diagnosis: Principal ICD Code: F23 - Brief psychotic disorder Pt Condition on Discharge: Stable Discharge Disposition: Discharge Home Discharge Instructions Diet Instructions: As Tolerated, No Restrictions Activities you can perform: Regular-No Restrictions Scheduled Appointment: [facility] Discharge Time > 30 minutes Mental Status Examination Appearance: Appropriate Consciousness: Alert Orientation: x4 Motor Activity: Normal gait Speech: Hesitant, Slow Language: Adequate Fund of Knowledge: Poor (Decrease in the thought blocking) Attention and Concentration: Easily Distracted (Improved) Memory: Unremarkable (Fuzzy on some details unsure if this is due to lack of knowledge versus memory) Mood: Sad, Anxious (Calm her) Affect: Other (Decreased range and intensity) Thought Process & Associations: Circumstantial (Improve) Thought Content: Thought blocking (Improved) Hallucination Type: None (He denies that there seems to be some thought blocking and internal stimulation present) Delusion Type: None Suicidal Ideation: No Suicidal Plan: No Suicidal Intention: No Homicidal Ideation: No Homicidal Plan: No Homicidal Intention: No Insight: Poor Judgment: Poor Discharge/Advance Care Plan Health Problems: (1) Brief psychotic disorder Goals to promote your health * To prevent worsening of your condition and complications * To maintain your health at the optimal level Directions to meet your goals Take your medications as prescribed Follow your dietary instruction Follow activity as directed Keep your appointments as scheduled Take your immunizations and boosters as scheduled If your symptoms worsen call your PCP, if no PCP go to Urgent Care Center or Emergency Room For 25/09 questions related to your inpatient stay or results of tests pending at discharge, please contact Dr. Antoine Olmedo at Smoking is Dangerous to Your Health. Avoid second hand smoking Antoine Olmedo MD July 10, 2017 13:36
== END 2017-07-10 16:45 | disposition home or self-care (01) | DRG 885 ==
LOC: NEPC 17:17 → NEDA 07-07 12:37 → H260 07-07 15:30
PROVIDERS: ADMIT Psychiatry & Neurology Psychiatry; ATTEND Psychiatry & Neurology Psychiatry
DX: F23 Brief psychotic disorder (principal); R13.10 Dysphagia, unspecified; Z91.14 Patient's other noncompliance with medication regimen; E86.0 Dehydration; Z94.7 Corneal transplant status
CPT/HCPCS: 80048; 80053; 80061; 80307; 83036; 84443; 85025; 93005; 96374; 96375; 96376; J1200; J2060